=== PATIENT | female | born 1940 | race Caucasian/White ===

== ENCOUNTER 2018-12-09 18:12 | Emergency (ER) | payer OTHER, MEDICAID ==
[~2018-12-09] VITALS: Ht 157.5 cm; Wt 113.4 kg
[2018-12-09] MEDS ORDERED: METFORMIN HCL500 MG PO (18:19)
[2018-12-09] MEDS ORDERED: COZAAR 25 MG TA25 MG PO (18:19)
[2018-12-09] MEDS ORDERED: LIPITOR10 MG PO (18:20)
[2018-12-09] MEDS ORDERED: MIRAPEX0.5 MG PO (18:20)
[2018-12-09] MEDS ORDERED: ELIQUIS5 MG PO (18:20)
[2018-12-09] MEDS ORDERED: NORCO 5-325 TA1 EAC1 PO (19:24)
[2018-12-09] MEDS ORDERED: MEDROLDOSEPACK PO (19:24)
[2018-12-09 21:49] VITALS: BP 148/72
== END 2018-12-09 21:50 | disposition home or self-care (01) ==
LOC: M.ERS 18:12
DX: M53.3 Sacrococcygeal disorders, not elsewhere classified (principal); I10 Essential (primary) hypertension; E11.9 Type 2 diabetes mellitus without complications; E78.5 Hyperlipidemia, unspecified; G25.81 Restless legs syndrome; Z88.5 Allergy status to narcotic agent; Z88.8 Allergy status to other drugs, medicaments and biological substances; Z90.49 Acquired absence of other specified parts of digestive tract; Z90.710 Acquired absence of both cervix and uterus; Z96.651 Presence of right artificial knee joint